=== PATIENT | female | born 1980 | race Caucasian/White ===

== ENCOUNTER 2020-03-04 21:17 | Emergency (ER) | payer OTHER ==
[~2020-03-04] VITALS: Ht 160 cm; Wt 86.2 kg
[~2020-03-04 21:17] MED LIST: AMOXICILLIN500 MG PO; ANAPROX DS550 MG PO; AUGMENTIN 875 M1 TAB PO; CITALOPRAM40 MG PO; CLINDAMYCIN HC300 MG PO; DIFLUCAN150 MG PO; GLIPIZIDE10 M1 PO; GLUCOPHAGE1000 MG PO; HYDROCODONE BIT1 T11 PO; IBU-8800 MG PO; KEFLEX 500 MG E2 CAP PO; PRILOSEC20 M1 PO; QUESTRAN LIGHT4 GM PO; TRAMADOL HCL50 MG PO; Vibra-Tab100 MG PO; ZOFRAN4 MG PO
[2020-03-04 21:38] VITALS: BP 127/76
== END 2020-03-05 00:59 | disposition home or self-care (01) ==
LOC: ED 21:17
DX: S93.401A Sprain of unspecified ligament of right ankle, initial encounter (principal); E78.5 Hyperlipidemia, unspecified; Z88.5 Allergy status to narcotic agent; Z79.84 Long term (current) use of oral hypoglycemic drugs; Z79.899 Other long term (current) drug therapy; Z90.49 Acquired absence of other specified parts of digestive tract; X58.XXXA Exposure to other specified factors, initial encounter; Y93.89 Activity, other specified; Y92.89 Other specified places as the place of occurrence of the external cause; Y99.8 Other external cause status

== ENCOUNTER 2021-08-31 20:00 | Emergency (ER) | payer OTHER ==
[~2021-08-31] VITALS: Ht 154.9 cm; Wt 69.9 kg
[2021-08-31 21:04] VITALS: BP 122/60
[2021-08-31] MEDS ORDERED: IBUPROFEN600 MG PO (21:33)
[2021-08-31] MEDS ORDERED: AUGMENTIN 875875 MG PO (21:33)
== END 2021-08-31 22:02 | disposition home or self-care (01) ==
LOC: ED 20:00
DX: K08.89 Other specified disorders of teeth and supporting structures (principal); F17.210 Nicotine dependence, cigarettes, uncomplicated

== ENCOUNTER 2022-04-22 13:01 | Emergency (ER) | payer OTHER ==
[~2022-04-22] VITALS: Wt 69.9 kg
[~2022-04-22 13:01] MED LIST changes: +AUGMENTIN 875875 MG PO; +IBUPROFEN600 MG PO
[2022-04-22 13:08] VITALS: BP 118/69
[2022-04-22] MEDS ORDERED: Motrin,Rufen800 MG PO (13:49)
== END 2022-04-22 13:56 | disposition home or self-care (01) ==
LOC: ED 13:01
DX: S66.812A Strain of other specified muscles, fascia and tendons at wrist and hand level, left hand, initial encounter (principal); Z88.8 Allergy status to other drugs, medicaments and biological substances; Z90.49 Acquired absence of other specified parts of digestive tract; Z98.890 Other specified postprocedural states; Z98.51 Tubal ligation status; Z87.891 Personal history of nicotine dependence; X50.0XXA Overexertion from strenuous movement or load, initial encounter; Y93.89 Activity, other specified; Y92.89 Other specified places as the place of occurrence of the external cause; Y99.8 Other external cause status

== ENCOUNTER → 2022-12-08 | Outpatient (CLI) | payer BC, OTHER ==
[~2022-12-08] MED LIST changes: +Motrin,Rufen800 MG PO
== END | disposition home or self-care (01) ==
LOC: RAD 10:27
PROVIDERS: ATTEND Nurse Practitioner Family
DX: M25.511 Pain in right shoulder (principal)

== ENCOUNTER 2023-01-21 19:55 | Emergency (ER) | payer BC ==
[~2023-01-21] VITALS: Ht 154.9 cm; Wt 75.3 kg
[2023-01-21 19:59] VITALS: BP 128/76
== END 2023-01-21 22:36 | disposition home or self-care (01) ==
LOC: ED 19:55
DX: L30.8 Other specified dermatitis (principal); B05.9 Measles without complication; Z88.6 Allergy status to analgesic agent; Z90.49 Acquired absence of other specified parts of digestive tract; Z98.890 Other specified postprocedural states; Z98.51 Tubal ligation status; Z90.710 Acquired absence of both cervix and uterus; F17.210 Nicotine dependence, cigarettes, uncomplicated

== ENCOUNTER 2024-01-16 23:24 | Emergency (ER) | payer OTHER ==
[~2024-01-16] VITALS: Ht 154.9 cm; Wt 74.4 kg
[2024-01-16 23:33] VITALS: BP 124/64
== END 2024-01-17 02:27 | disposition home or self-care (01) ==
LOC: ED 23:24
DX: S09.90XA Unspecified injury of head, initial encounter (principal); M54.50 Low back pain, unspecified; E44.1 Mild protein-calorie malnutrition; E11.9 Type 2 diabetes mellitus without complications; E78.5 Hyperlipidemia, unspecified; F17.210 Nicotine dependence, cigarettes, uncomplicated; Z88.5 Allergy status to narcotic agent; Z88.8 Allergy status to other drugs, medicaments and biological substances; Z79.899 Other long term (current) drug therapy; Z98.890 Other specified postprocedural states; Z90.49 Acquired absence of other specified parts of digestive tract; Z90.711 Acquired absence of uterus with remaining cervical stump; W18.09XA Striking against other object with subsequent fall, initial encounter; Y93.89 Activity, other specified; Y92.69 Other specified industrial and construction area as the place of occurrence of the external cause; Y99.0 Civilian activity done for income or pay